=== PATIENT | male | born 1975 | race American Indian/Alaskan Native ===

== ENCOUNTER 2016-10-23 23:17 | Emergency (ER) | payer SELFPAY ==
[2016-10-24 00:20] VITALS: BP 106/65
[2016-10-24] MEDS ORDERED: BOOSTRIX IM ONE (04:50)
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
== END 2016-10-24 06:21 | disposition home or self-care (01) ==
LOC: ED 23:17
DX: L03.113 Cellulitis of right upper limb (principal); F17.200 Nicotine dependence, unspecified, uncomplicated; F12.10 Cannabis abuse, uncomplicated
CPT/HCPCS: 90471; 90715; 99282

== ENCOUNTER 2017-09-23 09:19 | Emergency (ER) | payer SELFPAY ==
[2017-09-23 10:08] LABS: Hematocrit 44.3 % (35.5-45.6); Hemoglobin 14.8 gm/dl (11.8-15.2); Mean Corpuscular HGB Conc 34 % (32-34); Mean Corpuscular Hemoglobin 32 pg (28-32); Mean Corpuscular Volume 95 fl (84-94); Platelet Count 216 K/mm3 (140-440); Red Blood Count 4.68 M/mm3 (3.65-5.03)
[2017-09-23 10:24] LABS: BUN/Creatinine Ratio 11; Blood Urea Nitrogen 13 mg/dL (9-20); Calcium 9.7 mg/dL (8.4-10.2); Hemolysis Index 28
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
--- NOTE | 2017-09-23 11:18 | Cat Scan Report ---
FINAL REPORT EXAM: CT HEAD/BRAIN WO CON HISTORY: headache and dizziness TECHNIQUE: CT of the Head without IV contrast. PRIORS: None currently available. FINDINGS: There is no evidence for acute ischemia. There is no hemorrhage. There is no midline shift. There is no hydrocephalus. There is no mass. Age appropriate bright-white matter attenuation is noted. There is no calvarial fracture. The temporal bones demonstrate aerated mastoid air cells. The middle ears appear unremarkable. Paranasal sinuses are unremarkable. Globes are intact. IMPRESSION: No acute intracranial findings.
[2017-09-23 13:31] LABS: Bilirubin,Urine NEG (Negative); Blood,Urine NEG (Negative); Color,Urine Yellow (Yellow); Mucus,Urine FEW /HPF; Protein,Urine <15 mg/dL mg/dL (Negative); Urobilinogen,Urine < 2.0 mg/dL (<2.0)
[2017-09-23 13:41] LABS: Amphetamine Screen,Urine PRESUMPTIVE NEGATIVE; Benzodiazepines Screen,Urine PRESUMPTIVE NEGATIVE; Cocaine Screen,Urine PRESUMPTIVE NEGATIVE; Methadone Screen,Urine PRESUMPTIVE NEGATIVE; Opiate Screen,Urine PRESUMPTIVE NEGATIVE
[2017-09-23 13:58] LABS: Cannabinoid Screen,Urine PRESUMPTIVE POSITIVE
[2017-09-23 14:34] VITALS: BP 116/65
== END 2017-09-23 15:00 | disposition home or self-care (01) ==
LOC: ED 09:19
DX: R42 Dizziness and giddiness (principal); L73.2 Hidradenitis suppurativa; R51 Headache; F17.200 Nicotine dependence, unspecified, uncomplicated; F12.10 Cannabis abuse, uncomplicated; Z79.899 Other long term (current) drug therapy
CPT/HCPCS: 36415; 70450; 80048; 80307; 81001; 84484; 85027; 93005; 93010

== ENCOUNTER 2018-05-12 12:40 | Emergency (ER) | payer SELFPAY ==
--- NOTE | 2018-05-12 12:56 | Emergency Department Report ---
Blank Doc - Documentation Documentation: This is a 43-year-old male that presents with cough and body aches. Stated he believes its from mold at home. Also c/o of intermittent stomach pain and chest pain. Currently the patient denies any chest pain or SOB. Denies any other complaints. This initial assessment diagnostic orders/clinical plan/treatment(s) is/are subject to change based on patient's health status, clinical progression and re- assessment by fellow clinical providers in the ED. Further treatment and workup at subsequent clinical providers discretion. Patient/guardians urged not to elope from ED s their condition may be serious if not clinically assessed and managed. Initial orders include: 1-Patient sent to [facility] for further evaluation and treatment 2- CXR 3- EKG
[2018-05-12 12:58] VITALS: BP 130/53
--- NOTE | 2018-05-12 14:14 | XRay Report ---
FINAL REPORT EXAM: XR CHEST ROUTINE 2V HISTORY: cough COMPARISON: None. TECHNIQUE: Mental and lateral views of the chest FINDINGS: The cardiomediastinal silhouette is normal in appearance. There is elevation of the right hemidiaphragm and blunting of the right costophrenic angle. The left lung is clear. No pneumothorax. No acute bony or soft tissue abnormality. IMPRESSION: Elevation of the right hemidiaphragm and blunting of the right costophrenic angle. Findings likely re present scarring. A trace pleural effusion is not excluded. Recommend clinical correlation and compar lambert to any previous studies. No acute focal consolidation.
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
== END 2018-05-12 17:12 | disposition home or self-care (01) ==
LOC: ED 12:40
DX: J06.9 Acute upper respiratory infection, unspecified (principal); F17.200 Nicotine dependence, unspecified, uncomplicated
CPT/HCPCS: 71046; 93005; 93010

== ENCOUNTER 2020-06-28 06:19 | Emergency (ER) | payer SELFPAY ==
[2020-06-28 07:31] LABS: Hematocrit 47.4 % (35.5-45.6); Mean Corpuscular HGB Conc 34 % (32-34); Mean Corpuscular Volume 93 fl (84-94); Platelet Count 201 K/mm3 (140-440); Red Blood Count 5.09 M/mm3 (3.65-5.03); Red Cell Distribution Width 12.4 % (13.2-15.2)
[2020-06-28 07:52] LABS: Alanine Aminotransferase 25 units/L (7-56); Albumin 4.2 g/dL (3.9-5); BUN/Creatinine Ratio 15; Blood Urea Nitrogen 23 mg/dL (9-20); Calcium 10.8 mg/dL (8.4-10.2); Hemolysis Index 15
[2020-06-28 08:07] LABS: Bilirubin,Urine NEG (Negative); Blood,Urine NEG (Negative); Color,Urine Straw (Yellow); Protein,Urine <15 mg/dL mg/dL (Negative); Urobilinogen,Urine < 2.0 mg/dL (<2.0)
[2020-06-28] MEDS ORDERED: SODIUM CHLORIDE 0.9% 1000 ML 1,000 ML IV ONE (08:22)
[2020-06-28] MEDS ORDERED: INSULIN REGULAR, HUMAN 100 UNITS/1 ML IV ONE ×2 (08:33→09:19)
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
[2020-06-28 09:14] VITALS: BP 126/73
== END 2020-06-28 11:12 | disposition home or self-care (01) ==
LOC: ED 06:19
DX: E11.65 Type 2 diabetes mellitus with hyperglycemia (principal); Z79.899 Other long term (current) drug therapy; Z87.891 Personal history of nicotine dependence; Z98.890 Other specified postprocedural states
CPT/HCPCS: 36415; 80053; 81001; 82805; 82947; 82962; 85027; 96361; 96374; 96376; 99283; J7030; J1815

== ENCOUNTER 2020-07-05 21:15 | Emergency (ER) | payer SELFPAY | END 2020-07-05 23:10 | disposition left against medical advice (07) | LOC: ED 21:15 | DX: R42 Dizziness and giddiness (principal); Z53.21 Procedure and treatment not carried out due to patient leaving prior to being seen by health care provider ==